=== PATIENT | female | born 1980 | race Caucasian/White ===

== ENCOUNTER 2016-12-14 06:38 | Day surgery (SDC) | payer BC, SELFPAY ==
[2016-12-14] MEDS ORDERED: Bupivacaine 0.25%/EPINEPHrine 1:200,000 10 ML SDV INJECT ONE (07:00)
[2016-12-14] MEDS ORDERED: Lactated Ringers 1,000 ML IV SCH (07:00)
[2016-12-14] MEDS ORDERED: ceFAZolin 2 GM in Premix Bag 1 BAG IV ONE (07:00)
[2016-12-14] MEDS ORDERED: Propofol 200 MG/20 ML SDV ONE (07:29)
[2016-12-14] MEDS ORDERED: Rocuronium 10 MG/ML 10 ML Syringe ONE (07:29)
[2016-12-14] MEDS ORDERED: Midazolam 1 MG/ML 2 ML SDV ONE (07:29)
[2016-12-14] MEDS ORDERED: Lidocaine 2% 5 ML SDV ONE (07:29)
[2016-12-14] MEDS ORDERED: Succinylcholine/Normal Saline 200 MG/10 ML Syringe ONE (07:29)
[2016-12-14] MEDS ORDERED: fentaNYL 100 MCG/2 ML SDV ONE ×3 (07:29→11:35)
[2016-12-14] MEDS ORDERED: Bupivacaine 0.25%/EPINEPHrine 1:200,000 10 ML SDV ONE (07:32)
--- NOTE | 2016-12-14 07:33 | PCM.PREANE ---
Preanesthetic Assessment - Anesthesia/Transfusion/Family Hx Anesthesia History: No Prior Anesthesia Other Type of Anesthesia Reaction Comment: pt adopted Transfusion History: No Prior Transfusion(s) - Review of Systems General: No Symptoms Pulmonary: No Symptoms Cardiovascular: No Symptoms Gastrointestinal: No symptoms Neurological: No Symptoms - Physical Assessment NPO Status Date: 12/13/16 NPO Status Time: 23:45 O2 Sat by Pulse Oximetry: 99 Respiratory Rate: 16 Vital Signs: Last Vital Signs Temp 37.1 C 12/14/16 06:53 Pulse 95 12/14/16 06:53 Resp 16 12/14/16 06:53 BP 106/66 12/14/16 06:53 Pulse Ox 99 12/14/16 06:53 Height: 1.55 m Weight: 73.028 kg ASA Class: 1 Mental Status: Alert & Oriented x3 Airway Class: Mallampati = 1 Dentition: Reports: Normal Dentition ROM/Head Extension: Full Lungs: Clear to auscultation, Normal respiratory effort Cardiovascular: Regular Rate, Regular Rhythm - Lab Values: Laboratory Last Values Urine HCG, Qual NEGATIVE (NEGATIVE) 12/14/16 06:50 - Allergies Allergies/Adverse Reactions: Allergies Allergy/AdvReac Type Severity Reaction Status Date / Time No Known Allergies Allergy Verified 12/12/16 09:54 - Anesthesia Plan Pre-Op Medication Ordered: None - Acknowledgements Anesthesia Type Planned: General Anesthesia Pt an Appropriate Candidate for the Planned Anesthesia: Yes Alternatives and Risks of Anesthesia Discussed w Pt/Guardian: Yes Pt/Guardian Understands and Agrees with Anesthesia Plan: Yes PreAnesthesia Questionnaire HEENT History: Reports: Other (see below) Other HEENT History: wears glasses/contacts Respiratory History: Reports: Other (see below) Other Respiratory History: sarcoidosis of the lungs 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: Musculoskeletal History: Reports: Other (see below) Other Musculoskeletal History: 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 Neurological History: Reports: Migraines Psychiatric History: Reports: ADHD, Anxiety, Depression - Past Surgical History Head Surgeries/Procedures: Reports: None - SUBSTANCE USE Smoking Status *Q: Former Smoker Tobacco Use Within Last Twelve Months: No Recreational Drug Use History: No - HOME MEDS Home Medications: Home Meds Albuterol Sulfate [Ventolin Hfa] 1 - 2 puff INH ASDIRECTED PRN 12/12/16 [History ] Desvenlafaxine Succinate [Pristiq] 50 mg PO DAILY 12/12/16 [History] Fluticasone/Salmeterol [Advair Diskus 100-50] 1 puff INH BID 12/12/16 [History] Lisdexamfetamine Dimesylate [Vyvanse] 60 mg PO DAILY 12/12/16 [History] buPROPion HCl [Wellbutrin SR] 150 mg PO DAILY 12/12/16 [History] - CURRENT (IN HOUSE) MEDS Current Meds: Current Medications Hydrocodone Bitart/Acetaminophen ([place] 325-5 Mg) 1 tab PO Q4H PRN PRN Reason: Pain Lactated Ringer's (Ringers, Lactated) 1,000 mls @ 125 mls/hr IV ASDIRECTED [facility] Last Admin: 12/14/16 06:56 Dose: 125 mls/hr Discontinued Medications Bupivacaine HCl/Epinephrine Bitart (Marcaine 0.25%/Epinephrine 1:200,000) 20 ml INJECT ONETIME ONE Stop: 12/14/16 07:01 Fentanyl (Sublimaze) Confirm Administered Dose 100 mcg .ROUTE .STK-MED ONE Stop: 12/14/16 07:30 Cefazolin Sodium/Dextrose 2 gm (/ Premix) 50 mls @ 100 mls/hr IV ONETIME ONE Stop: 12/14/16 07:29 Lidocaine (Xylocaine-Mpf 2%) Confirm Administered Dose 5 ml .ROUTE .STK-MED ONE Stop: 12/14/16 07:30 Midazolam HCl (Versed 1 Mg/Ml) Confirm Administered Dose 2 mg .ROUTE .STK-MED ONE Stop: 12/14/16 07:30 Propofol (Diprivan 20 Ml) Confirm Administered Dose 200 mg .ROUTE .STK-MED ONE Stop: 12/14/16 07:30 Rocuronium [place] (Zemuron) Confirm Administered Dose 100 mg .ROUTE .STK-MED ONE Stop: 12/14/16 07:30 Succinylcholine Chloride (Succinylcholine In Ns Pf) Confirm Administered Dose 200 mg .ROUTE .STK-MED ONE Stop: 12/14/16 07:30 Preanesthetic Assessment - ANESTHESIA/TRANSFUSION/FAMILY HX Other Type of Anesthesia Reaction Comment: pt adopted Family History of Anesthesia Reaction: No - PHYSICAL ASSESSMENT O2 Sat by Pulse Oximetry: 99 RR: 16 Vital Signs: Last Vital Signs Temp 37.1 C 12/14/16 06:53 Pulse 95 12/14/16 06:53 Resp 16 12/14/16 06:53 BP 106/66 12/14/16 06:53 Pulse Ox 99 12/14/16 06:53 Height: 1.55 m Weight: 73.028 kg NPO Status Date: 12/13/16 NPO Status Time: 23:45 - LAB Values: Laboratory Last Values Urine HCG, Qual NEGATIVE (NEGATIVE) 12/14/16 06:50 - ALLERGIES Allergies/Adverse Reactions: Allergies Allergy/AdvReac Type Severity Reaction Status Date / Time No Known Allergies Allergy Verified 12/12/16 09:54
[2016-12-14] MEDS ORDERED: Acetaminophen/HYDROcodone 325-5 MG Tab PO PRN (08:00)
[2016-12-14] MEDS ORDERED: HYDROmorphone 2 MG/ML Syringe ONE (08:20)
[2016-12-14] MEDS ORDERED: fentaNYL 100 MCG/2 ML SDV IVPUSH PRN (08:29)
[2016-12-14] MEDS ORDERED: Meperidine PF 50 MG/ML Syringe IV PRN (08:30)
--- NOTE | 2016-12-14 11:33 | PCM.POSTAN ---
POST ANESTHESIA ASSESSMENT - MENTAL STATUS Mental Status: oriented, somnolent - RESPIRATORY Respiratory Status: respiratory rate WNL, airway patent - CARDIOVASCULAR CV Status: pulse rate WNL, blood pressure stable - GASTROINTESTINAL GI Status: no symptoms - POST OP HYDRATION Hydration Status: adequate & stable
[2016-12-14] MEDS ORDERED: Ketorolac 30 MG/ML SDV ONE (11:35)
[2016-12-14] MEDS ORDERED: Ondansetron 4 MG/2 ML SDV ONE (11:35)
--- NOTE | 2016-12-14 13:31 | PCM48HPAN ---
Post Anesthesia Note - EVALUATION WITHIN 48HRS OF ANESTHETIC Vital Signs in Normal Range: Yes Patient Participated in Evaluation: Yes Respiratory Function Stable: Yes Airway Patent: Yes Cardiovascular Function Stable: Yes Hydration Status Stable: Yes Pain Control Satisfactory: Yes Nausea and Vomiting Control Satisfactory: Yes Mental Status Recovered: Yes
[2016-12-14 14:21] VITALS: BP 106/68
--- NOTE | 2016-12-15 14:15 | PCM.OPNOTE ---
- General Post-Op/Procedure Note Date of Surgery/Procedure: 12/14/16 Operative Procedure(s): bilateral breast reduction Pre Op Diagnosis: bilateral macromastia Post-Op Diagnosis: Same Anesthesia Technique: General ET tube, Local Primary Surgeon: Denia Valladares Putty Mixer And Applier: Faina Tiwari Complications: None Condition: Good Free Text/Narrative:: cosmetic fee for mastopexy as insurance did not cover as an exclusion. Still medically necessary for symptoms relief. Self Pay.
--- NOTE | 2016-12-16 23:09 | OR ---
SURGEON: SHWETHA LYNNE MD DATE OF PROCEDURE: 12/14/2016 PREOPERATIVE DIAGNOSES: Bilateral macromastia with shoulder grooving, neck pain, and back pain. POSTOPERATIVE DIAGNOSES: Bilateral macromastia with shoulder grooving, neck pain, and back pain. PROCEDURE: Bilateral breast reduction. HAMMERER HELPER: Faina Tiwari. ANESTHESIA: General ET tube. INDICATIONS: Ms. Estrella is a 36-year-old female seen today in evaluation for bilateral reduction mammoplasty. Unfortunately, she does meet medically necessary criteria, but her insurance company has an exclusion on breast reduction. We discussed risks and benefits of proceeding by self pay. She would like to proceed. I do think this would significantly help her documented issues. Risks were including, but not limited to, bleeding, infection, damage to underlying or overlying structures, possible need for future interventions and possible scarring. PROCEDURE IN DETAIL: After informed consent were obtained and placed on the chart, the patient was brought to the operating theater and laid in the supine position. After adequate general anesthetic was obtained, the area was prepped and draped in normal fashion and a time-out was completed to confirm side and site. Attention was then paid to dissection of the inferior pedicle using the markings made in the preanesthesia area and then measured marking for a 9 cm inferior pedicle here in the operating room. Once adequately measured and marked, the inferior pedicle was de-epithelialized, taking care to isolate the nipple- areolar complex at 35 mm. Once adequately de-epithelialized, attention was then paid to the upper skin flaps. Skin was dissected superficially approximately 1 [address] the way to the chest wall laterally and tapering to the chest wall medially. Once this was completed, attention was then paid to the isolation of the inferior pedicle and the intervening breast tissue was removed and sent to pathology. Total weight was around 400 g on each breast. Once this was removed, attention was then paid to meticulous hemostasis, copious irrigation and redraping of the skin. Once the skin was redraped over the inferior pedicle, attention was then paid to isolation and positioning of the new nipple- areolar complex. The patient was sat up in the supine position and the nipple- areolar complexes were appreciated to be at symmetric marked position. The patient was then laid back in the supine position and these were dissected out. The nipple-areolar complexes was then brought through and sutured in place using deep 3-0 and 4-0 Monocryl stitches and Steri-Strips were then used for dressing. The patient was dressed with fluffs, tape, and a compression bra. The patient tolerated the procedure well. All counts and needles were correct at the end of the case. FOLLOWUP INSTRUCTIONS: The patient will see us in clinic tomorrow or sooner if any problems, questions, or concerns. She was given a prescription for [place]. PACHECO / MIGUEL /[id number] MTDD
== END 2016-12-14 14:00 | disposition home or self-care (01) ==
LOC: MW.SDS 06:38
PROVIDERS: ATTEND Plastic Surgery
PROC: 0HBV0ZZ Excision of Bilateral Breast, Open Approach (ICD-10-PCS; principal; 2016-12-14)
DX: N62 Hypertrophy of breast (principal); F90.9 Attention-deficit hyperactivity disorder, unspecified type; F41.9 Anxiety disorder, unspecified; F32.9 Major depressive disorder, single episode, unspecified; Z87.891 Personal history of nicotine dependence; Z79.899 Other long term (current) drug therapy
CPT/HCPCS: 19318; 81025; 88304; A9270; J1170; J1885; J2250; J2405; J3010; J7120; 00402; J2704

== ENCOUNTER 2019-01-13 21:44 | Emergency (ER) | payer BC ==
[2019-01-13] MEDS ORDERED: Diazepam 5 MG Tab PO ONE (22:19)
--- NOTE | 2019-01-13 22:19 | EDM.PDOC ---
ED HPI GENERAL MEDICAL PROBLEM - General Chief Complaint: Behavioral/Psych Stated Complaint: ANXIETY Time Seen by Provider: 01/13/19 22:17 Source of Information: Reports: Patient - History of Present Illness INITIAL COMMENTS - FREE TEXT/NARRATIVE: HISTORY AND PHYSICAL: History of present illness: Patient with anxiety depression and ADHD on medications listed presents with episodic almost manic-like activities over the last few months no prior manic activities per patient she is having affairs with online man as well as not sleeping for days on and denies history of drug use abuse or dependence Denies suicidal homicidal ideation Review of systems: As per history of present illness and below otherwise all systems reviewed and negative. Past medical history: As per history of present illness and as reviewed below otherwise noncontributory. Surgical history: As per history of present illness and as reviewed below otherwise noncontributory. Social history: No reported history of drug or alcohol abuse. Family history: As per history of present illness and as reviewed below otherwise noncontributory. Physical exam: HEENT: Atraumatic, normocephalic, pupils reactive, negative for conjunctival pallor or scleral icterus, mucous membranes moist, throat clear, neck supple, nontender, trachea midline. Lungs: Clear to auscultation, breath sounds equal bilaterally, chest nontender. Heart: S1S2, regular, negative for clicks, rubs, or JVD. Abdomen: Soft, nondistended, nontender. Negative for masses or hepatosplenomegaly. Negative for costovertebral tenderness. Pelvis: Stable nontender. Genitourinary: Deferred. Rectal: Deferred. Extremities: Atraumatic, negative for cords or calf pain. Neurovascular unremarkable. Neuro: Awake, alert, oriented. Cranial nerves II through XII unremarkable. Cerebellum unremarkable. Motor and sensory unremarkable throughout. Exam nonfocal. Diagnostics: [Clinical ] Therapeutics: []I am 5 mg by mouth now prescription for #10 no refill Follow-up with primary care for medication adjustment frequent visits consideration of bipolar disorder Impression: [ chronic history of baseline possible bipolar disorder ] Definitive disposition and diagnosis as appropriate pending reevaluation and review of above. - Related Data Allergies Allergy/AdvReac Type Severity Reaction Status Date / Time No Known Allergies Allergy Verified 12/12/16 09:54 Home Meds: Home Meds Albuterol Sulfate [Ventolin Hfa] 1 - 2 puff INH ASDIRECTED PRN 12/12/16 [History ] Fluticasone/Salmeterol [Advair Diskus 100-50] 1 puff INH BID 12/12/16 [History] Lisdexamfetamine Dimesylate [Vyvanse] 70 mg PO DAILY 12/12/16 [History] Past Medical History HEENT History: Reports: Other (See Below) Other HEENT History: wears glasses/contacts Cardiovascular History: Reports: None Respiratory History: Reports: None, Other (See Below) Other Respiratory History: sarcoidosis of the lungs Gastrointestinal History: Reports: None Genitourinary History: Reports: None 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: Musculoskeletal History: Reports: Other (See Below) Other Musculoskeletal History: 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 Neurological History: Reports: Migraines Psychiatric History: Reports: ADHD, Anxiety, Depression Endocrine/Metabolic History: Reports: None Dermatologic History: Reports: None - Infectious Disease History Infectious Disease History: Reports: Chicken Pox - Past Surgical History Head Surgeries/Procedures: Reports: None Social & Family History - Family History Family Medical History: Noncontributory - Recreational Drug Use Recreational Drug Use: No ED ROS GENERAL - Review of Systems Review Of Systems: See Below ED EXAM, GENERAL - Physical Exam Exam: See Below Course - Vital Signs Last Recorded V/S: Last Vital Signs Temp 97.7 F 01/13/19 21:59 Pulse 99 01/13/19 21:59 Resp 14 01/13/19 21:59 BP 128/87 01/13/19 21:59 Pulse Ox 98 01/13/19 21:59 Departure - Departure Time of Disposition: 22:18 Disposition: Home, Self-Care 01 Condition: Good Clinical Impression: Depressive disorder, Anxiety - Discharge Information Referrals: Kirsten Haas DO [Primary Care Provider] - Additional Instructions: medication as prescribed Return if symptoms persist or worsen Follow-up with primary care frequent visits for medication adjustment The following information is given to patients seen in the emergency department who are being discharged to home. This information is to outline your options for follow-up care. We provide all patients seen in our emergency department with a follow-up referral. The need for follow-up, as well as the timing and circumstances, are variable depending upon the specifics of your emergency department visit. If you don't have a primary care physician on staff, we will provide you with a referral. We always advise you to contact your personal physician following an emergency department visit to inform them of the circumstance of the visit and for follow-up with them and/or the need for any referrals to a consulting specialist. The emergency department will also refer you to a specialist when appropriate. This referral assures that you have the opportunity for follow-up care with a specialist. All of these measure are taken in an effort to provide you with optimal care, which includes your follow-up. Under all circumstances we always encourage you to contact your private physician who remains a resource for coordinating your care. When calling for follow-up care, please make the office aware that this follow-up is from your recent emergency room visit. If for any reason you are refused follow-up, please contact the [facility] emergency department at and asked to speak to the emergency department charge nurse.
[2019-01-13 22:42] VITALS: BP 134/91
== END 2019-01-13 22:45 | disposition home or self-care (01) ==
LOC: MW.ED 21:44
DX: F41.9 Anxiety disorder, unspecified (principal); F32.9 Major depressive disorder, single episode, unspecified
CPT/HCPCS: 99283; A9270